=== PATIENT | female | born 1960 | race Caucasian/White ===

== ENCOUNTER 2019-01-24 08:31 | Day surgery (SDC) | payer MEDICARE, OTHER ==
[2019-01-20 10:00] VITALS: BMI 23.3
[~2019-01-24 08:31] MED LIST: DEXAMETHASONE SOD PHOSPHATE 10 MG/ML 1 ML VIAL IV ONE; HYDROmorphone 0.5 MG/0.5 ML SYRINGE IVP PRN; LACTATED RINGERS 1,000 ML IV SCH; LIDOCAINE 1% 20 ML VIAL (10MG/ML) FOR IV START INTRADERMA PRN; MIDAZOLAM 2 MG/2 ML VIAL IV PRN; ONDANSETRON 4 MG/2 ML VIAL IVP ONE; Pre Op ABX Message 1 EACH MISC MISCELLANE ONE; SCOPOLAMINE 1.5MG/72HR PATCH TRANSDERM ONE
[2019-01-24 09:35] VITALS: TEMP 98.5
[2019-01-24] MEDS ORDERED: LIDOCAINE 1% 20 ML VIAL (10MG/ML) FOR IV START SQ ONE (09:40)
[2019-01-24] MEDS ORDERED: LIDOCAINE 1% INJ 10MG/ML (20 ML MDV) SQ ONE ×2 (09:49→09:55)
[2019-01-24] MEDS ORDERED: BUPIVACAINE (PF) 0.5% 30 ML VIAL SQ ONE ×2 (09:49→09:55)
[2019-01-24] MEDS ORDERED: fentaNYL (PF) 50 MCG/ML 2 ML AMP ONE (09:51)
[2019-01-24] MEDS ORDERED: MIDAZOLAM 2 MG/2 ML VIAL ONE (09:51)
[2019-01-24] MEDS ORDERED: PROPOFOL 10 MG/ML 20 ML VIAL IV ONE (09:51)
[2019-01-24 10:50] VITALS: BP 150/61; PULSE 47; RESP 16
--- NOTE | 2019-01-24 18:37 | OP ---
OPERATIVE REPORT SURGERY DATE: 01/24/2019 PREOPERATIVE DIAGNOSIS: Left carpal tunnel syndrome. POSTOP DIAGNOSIS: Left carpal tunnel syndrome DESCRIPTION OF PROCEDURE: The patient was taken to the Operative Suite where a sedation was administered by the Department of Anesthesia. I then performed a local injection along the line of the incision with a combination of Marcaine and Xylocaine both without epinephrine. The hand was then prepped and draped in the usual manner. The arm was elevated, exsanguinated and the cuff was inflated to 250 mm of mercury. A longitudinal incision was made along the ring finger ray distal to the wrist crease. Dissection was taken through the skin and subcutaneous tissue, initially sharp through the skin and then blunt through the subcutaneous tissue to ensure protection of any potential terminal transverse branches of the palmar cutaneous nerve. The palmar fascia was then incised under direct vision longitudinally exposing the transverse carpal ligament. The transverse carpal ligament also was incised under direct vision. The dissection was then continued proximally beneath the skin under direct vision to release the distal forearm fascia. The median nerve was then reflected free of tenosynovium to ensure no adhesions. The tourniquet was then released. The wound was then irrigated and the skin was closed with a running 5-0 nylon suture. A soft bulky dressing was applied including a volar plaster splint holding the wrist in a neutral slightly extended position. The patient was then taken to the Recovery Room in satisfactory condition. JESUS / ERUM: [id number] /
== END 2019-01-24 11:01 | disposition home or self-care (01) ==
LOC: OR 08:31
PROVIDERS: ATTEND Orthopaedic Surgery Hand Surgery
DX: G56.02 Carpal tunnel syndrome, left upper limb (principal); I25.10 Atherosclerotic heart disease of native coronary artery without angina pectoris; F17.210 Nicotine dependence, cigarettes, uncomplicated; Z95.5 Presence of coronary angioplasty implant and graft; Z90.49 Acquired absence of other specified parts of digestive tract; Z79.1 Long term (current) use of non-steroidal anti-inflammatories (NSAID); Z79.891 Long term (current) use of opiate analgesic; Z79.899 Other long term (current) drug therapy; Z88.5 Allergy status to narcotic agent; Z88.2 Allergy status to sulfonamides
CPT/HCPCS: 64721; J2250; J1100; J2001; J3010; J2704

== ENCOUNTER 2024-08-26 17:40 | Emergency (ER) | payer MEDICARE, OTHER ==
[2024-08-26 17:53] VITALS: TEMP 97.5
[2024-08-26] MEDS ORDERED: HYDROcodone/APAP 5-325MG 1 EACH TAB PO STA (18:27)
--- NOTE | 2024-08-26 18:29 | ED ---
General Adult HPI - General Chief complaint: Recheck/Abnormal Lab/Rx Stated complaint: Possible clot in left leg Time Seen by Provider: 08/26/24 18:06 Source: patient, RN notes reviewed Mode of arrival: ambulatory Limitations: no limitations - History of Present Illness Initial comments: 64-year-old female presents to the emergency department for evaluation of left lower extremity DVT. Patient was seen at an outside facility and was diagnosed with a DVT. She states that the ultrasound was performed earlier today. She states that she went to her photo specialist following this and was advised to come to the emergency department again. She denies any chest pain, shortness of breath. Denies any recent fever, chills. She notes pain in the left lower extremity with mild swelling. She was given a dose of Eliquis 10 mg at the outside facility. - Related Data Home Medications Medication Instructions Recorded Confirmed Pramipexole Di-HCl [Mirapex] 1 mg PO BID 09/29/14 01/20/19 traMADol HCl [Ultram] 50 mg PO TID 09/29/14 01/24/19 Meloxicam [Mobic] 15 mg PO DAILY 01/20/19 01/20/19 Ocrevus 1 dose IV Q180D 01/20/19 01/24/19 Topiramate [Topamax] 50 mg PO BID 01/20/19 01/24/19 modafiniL [Provigil] 200 mg PO DAILY 01/20/19 01/24/19 tiZANidine [Zanaflex] 4 mg PO TID 01/20/19 01/24/19 Allergies Allergy/AdvReac Type Severity Reaction Status Date / Time codeine Allergy Nausea & Verified 08/26/24 17:53 Vomiting & Diarrhea Sulfa (Sulfonamide Allergy Rash/Hives Verified 08/26/24 17:53 Antibiotics) nuts Allergy Anaphylaxis Uncoded 08/26/24 17:53 Review of Systems ROS Statement: Those systems with pertinent positive or pertinent negative responses have been documented in the HPI. ROS Other: All systems not noted in ROS Statement are negative. Past Medical History Past Medical History: Hyperlipidemia, Myocardial Infarction (OK), Neurologic Disorder, Osteoarthritis (OA) Additional Past Medical History / Comment(s): MS, restless leg, kidney stones Last Myocardial Infarction Date:: 2013 History of Any Multi-Drug Resistant Organisms: None Reported Past Surgical History: Adenoidectomy, Appendectomy, Cholecystectomy, Heart Catheterization With Stent, Hysterectomy, Orthopedic Surgery, Tonsillectomy Additional Past Surgical History / Comment(s): arthroscopic felicia knees, rt rotator cuff repair with screw, Past Anesthesia/Blood Transfusion Reactions: No Reported Reaction Date of Last Stent Placement:: 2013 Past Psychological History: No Psychological Hx Reported Smoking Status: Current every day smoker Past Alcohol Use History: None Reported Past Drug Use History: None Reported - Past Family History Mother Family Medical History: No Reported History General Exam Limitations: no limitations General appearance: alert, in no apparent distress Head exam: Present: atraumatic, normocephalic, normal inspection Eye exam: Present: normal appearance, PERRL, EOMI. Absent: scleral icterus, conjunctival injection, periorbital swelling Respiratory exam: Present: normal lung sounds bilaterally. Absent: respiratory distress, wheezes, rales, rhonchi, stridor Cardiovascular Exam: Present: regular rate, normal rhythm, normal heart sounds. Absent: systolic murmur, diastolic murmur, rubs, gallop, clicks Extremities exam: Present: full ROM, tenderness (Tenderness in the left calf), normal capillary refill, calf tenderness, other (DP and PT pulses 2+ bilaterally, mild edema to the left lower extremity which is nonpitting. Capillary refill less than 2 seconds.). Absent: pedal edema, joint swelling Neurological exam: Present: alert, oriented X3 Psychiatric exam: Present: normal affect, normal mood Skin exam: Present: warm, dry, intact, normal color. Absent: rash Course Vital Signs 08/26/24 08/26/24 17:48 18:30 Temperature 97.5 F L Pulse Rate 56 L 61 Respiratory 20 18 Rate Blood Pressure 144/83 141/80 O2 Sat by Pulse 98 99 Oximetry Medical Decision Making - Medical Decision Making Was pt. sent in by a medical professional or institution (, PA, COMMUNICATIONS MANAGER, urgent care, hospital, or retirement...) When possible be specific @ -Sent in by her photo specialist Did you speak to anyone other than the patient for history (EMS, parent, family, police, friend...)? What history was obtained from this source @ -No Did you review nursing and triage notes (agree or disagree)? Why? @ -I reviewed and agree with nursing and triage notes Were old charts reviewed (outside hosp., previous admission, EMS record, old EKG, old radiological studies, urgent care reports/EKG's, retirement records)? Report findings @ -I reviewed the patient's ultrasound report that was performed at the outside facility revealing popliteal and tibial DVT, no evidence of proximal femoral DVT Differential Diagnosis (chest pain, altered mental status, abdominal pain women, abdominal pain men, vaginal bleeding, weakness, fever, dyspnea, syncope, headache, dizziness, GI bleed, back pain, seizure, CVA, palpatations, mental health, musculoskeletal)? @ -Differential Musculoskeletal Muscular strain, contusion, ligament sprain, fracture, arthritis, septic arthritis, bursitis, cellulitis, muscle spasm, nerve compression, DVT, arterial occlusion, herpes zoster, electrolyte abnormality, tumor.... This is not meant to be in all inclusive list EKG interpreted by me (3pts min.). @ -None X-rays interpreted by me (1pt min.). @ -None done CT interpreted by me (1pt min.). @ -None done U/S interpreted by me (1pt. min.). @ -None done What testing was considered but not performed or refused? (CT, X-rays, U/S, labs)? Why? @ -None What meds were considered but not given or refused? Why? @ -None Did you discuss the management of the patient with other professionals (professionals i.e. , PA, COMMUNICATIONS MANAGER, lab, RT, psych nurse, social sciences instructor, tube washer, teacher, environmental compliance officer, case consultant)? Give summary @ -No Was smoking cessation discussed for >3mins.? @ -No Was critical care preformed (if so, how long)? @ -No Were there social determinants of health that impacted care today? How? (Homelessness, low income, unemployed, alcoholism, drug addiction, transportation, low edu. Level, literacy, decrease access to med. care, prison, rehab)? @ -No Was there de-escalation of care discussed even if they declined (Discuss DNR or withdrawal of care, Hospice)? DNR status @ -No What co-morbidities impacted this encounter? (DM, HTN, Smoking, COPD, CAD, Cancer, CVA, ARF, Chemo, Hep., AIDS, mental health diagnosis, sleep apnea, morbid obesity)? @ -None Was patient admitted / discharged? Hospital course, mention meds given and route, prescriptions, significant lab abnormalities, going to OR and other pertinent info. @ -Discharge. Patient presented the emergency department sent in by her photo specialist. She was diagnosed with a DVT today. She was started on Eliquis 10 mg and a prescription was sent to her pharmacy. She had the initial dose of the outside facility. She notes that following that she went to her photo specialist and he advised her to come back to the emergency department. I reviewed the ultrasound report from the patient which shows popliteal and tibial DVT, no femoral DVT. The patient does not have any chest pain or shortness of breath. Patient has intact distal pulses and capillary refill less than 2 seconds. I advised her that she should continue taking the blood thinner as prescribed. Patient will be discharged home. She is understanding agreeable with this plan. Strict return precautions were discussed. Patient is stable at time of discharge. Case discussed with Dr. Sotelo. Undiagnosed new problem with uncertain prognosis? @ -No Drug Therapy requiring intensive monitoring for toxicity (Heparin, Nitro, Insulin, Cardizem)? @ -No Were any procedures done? @ -No Diagnosis/symptom? @ -DVT Acute, or Chronic, or Acute on Chronic? @ -Acute Uncomplicated (without systemic symptoms) or Complicated (systemic symptoms)? @ -Uncomplicated Side effects of treatment? @ -No Exacerbation, Progression, or Severe Exacerbation? @ -No Poses a threat to life or bodily function? How? (Chest pain, [place], [place], pneumonia, PE, COPD, DKA, ARF, appy, cholecystitis, CVA, Diverticulitis, Homicidal, Suicidal, threat to staff... 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 You should be t aking 10 mg of Eliquis twice daily for the first 7 days followed by 5 mg twice daily. Follow-up with your primary care provider. Return to the emergency department for new or worsening symptoms. Is patient prescribed a controlled substance at d/c from ED?: No Referrals: Matt Stevens MD [Primary Care Provider] - 1-2 days
[2024-08-26 18:31] VITALS: BP 141/80; PULSE 61; RESP 18
== END 2024-08-26 18:39 | disposition home or self-care (01) ==
LOC: EC 17:40
DX: I82.402 Acute embolism and thrombosis of unspecified deep veins of left lower extremity (principal); F17.200 Nicotine dependence, unspecified, uncomplicated; Z88.2 Allergy status to sulfonamides; Z88.5 Allergy status to narcotic agent; Z91.018 Allergy to other foods
CPT/HCPCS: 99283